=== PATIENT | male | born 1950 | race Caucasian/White ===

== ENCOUNTER 2016-12-14 10:13 | Day surgery (SDC) | payer MEDICARE, BC ==
[~2016-12-14 10:13] MED LIST: RINGERS SOLUTION,LACTATED 1,000 ML IV PRN
[2016-12-14] MEDS ORDERED: PANTOPRAZOLE SODIUM 40 MG/100 ML PIGGYBACK IV ONE (12:55)
[2016-12-14] MEDS ORDERED: PANTOPRAZOLE SODIUM 40 MG in NORMAL SALINE 100 ML IV ONE (13:00)
[2016-12-14 13:14] VITALS: BP 147/92
--- NOTE | 2016-12-14 17:24 | OR ---
Operative Report - Dictated Report Narrative: Operative Report Date of operation: 12/14/2016 Preoperative diagnosis: History of Herr's esophagus. No recent dedicated colon studies Postoperative diagnosis: Hiatal hernia with distal esophagitis. Gastritis with polyp formation (pathology and CLOtest pending) diverticulosis. 4 mm polyp at the hepatic flexure (pathology pending) Operation: EGD with biopsies. Colonoscopy with hot forceps polypectomy at the hepatic flexure Surgeon: Dr Gonzalez Anesthesia: PRAFUL HILL CRNA Indications for procedure: The patient is a 65-year-old male referred by Dr. Long. The patient has a history of Herr's esophagus with low-grade dysplasia in 2010 but no dysplasia in 2013. There is no family history of colon cancer Findings: Desaturation with sedation compatible with underlying obstructive sleep apnea Hiatal hernia with distal esophagitis and significant gastritis with polyp formation (pathology and CLOtest pending) Diverticulosis. 4 mm polyp at the hepatic flexure (pathology pending) Narrative of procedure: The patient was identified preoperatively, and prior to the administration of anesthetic a multidisciplinary timeout was observed EGD: With the patient in the recumbent position, a bite-block was placed, intravenous sedation was administered, and the patient's eyes covered with a towel. The flexible fiberoptic gastroscope was advanced into the posterior pharynx which appeared normal. The patient did evidence desaturation with sedation suggesting underlying obstructive sleep apnea. The supraglottic larynx appeared normal. The cords appeared normal, moved well, and opposed in the midline. The scope was advanced under direct vision into the proximal esophagus which appeared normal. The esophagus appeared freely distensible with normal mucosa. The esophageal mucosa appeared normal down to the gastroesophageal junction which was irregular and mildly inflamed. The GE junction appeared normally distensible. There was an axial sliding hiatal hernia. The scope was advanced into the stomach which was insufflated with air. Immediately apparent was an inflamed fundic polyp with evidence of bleeding. There was marvin gastritic erythema but no josephine ulcerations or neoplastic lesions were appreciated including a retroflexed view of the gastric fundus which clearly demonstrated the hiatal hernia. The scope was redirected toward the pylorus. The gastric polyp was biopsied. The biopsy site was seen to be hemostatic. Additional biopsies of the antrum were obtained for CLOtest and pathology. The biopsy sites were seen to be hemostatic. The pylorus appeared patent. The scope was advanced into the duodenal bulb which appeared normal. The scope was advanced further to the horizontal portion of the duodenum which appeared normal, specifically the villous architecture appeared well preserved and clear bile was present. The scope was slowly withdrawn through the duodenal bulb with confirmation that no active ulcer was present. The scope was withdrawn into the stomach, insufflated air was removed, the scope was withdrawn to just above the GE junction which was biopsied. The area appeared hemostatic. The scope was withdrawn from the patient, and this portion of the procedure terminated. COLONOSCOPY: The patient was then placed in the left lateral position, and the perineum was inspected. There was no evidence of pilonidal disease or skin breakdown. The external appearance of the anus was normal. Sphincter tone was good. The flexible fiberoptic colonoscope was inserted into the rectum which was insufflated with air. The rectal mucosa and submucosal vascular pattern appeared normal, the prep was seen to be complete. The scope was advanced through the sigmoid colon which contained several not impacted noninflamed diverticular openings. The scope was advanced up the descending colon, and around the splenic flexure where the triangular haustral architecture of the transverse colon was seen. The scope was advanced across the transverse colon to the hepatic flexure where a 4 mm polyp was encountered. The polyp was biopsied and then thoroughly destroyed with electrocautery. The site was seen to be complete and hemostatic. The scope was advanced around the hepatic flexure to the cecum, where the confluence of tenia and the ileocecal valve were identified. The mucosa at this level appeared normal. The scope was then slowly withdrawn in a circular fashion so that all aspects of colonic mucosa were inspected. The biopsy polyp was again inspected and found to be completely destroyed and hemostatic. The colon was somewhat capacious in character but normal in course. The haustral architecture appeared well preserved throughout with no evidence of external compression. The mucosa and submucosal vascular pattern appeared normal, specifically there was no gross evidence to suggest colitis or inflammatory bowel disease and no AV malformations were seen. The diverticulosis was mild in degree and confined primarily to the sigmoid colon. No additional polyps were encountered. The scope was gradually withdrawn to the level of the rectum. As much insufflated air as possible was removed. The scope was withdrawn from the patient and the procedure terminated. The patient tolerated the anesthetic and procedure well without complication and was transferred back to the ambulatory surgery area awake and in stable condition. The patient remained stable throughout a period of postoperative observation. He denied abdominal discomfort, was able to tolerate by mouth intake, and was up without assistance. I shared the operative findings with the patient his and he was given copies of the photographs which appear in the medical record. He was discharged home with instructions not to engage in hazardous activity today, but may resume normal activity tomorrow, and advance diet as tolerated. He is to continue those medications as listed in the history and physical exam. I made arrangements to contact him with the biopsy reports and will make additional recommendations for treatment and follow-up based upon those results. The findings of obstructive sleep apnea were explained to him and his , and it was strongly recommended that he seek an outpatient sleep study to further evaluate this. Reviewed and electronically signed
== END 2016-12-14 10:14 | disposition home or self-care (01) ==
LOC: AMB 10:13
PROVIDERS: ATTEND Surgery
PROC: 0DB48ZX Excision of Esophagogastric Junction, Via Natural or Artificial Opening Endoscopic, Diagnostic (ICD-10-PCS; 2016-12-14)
PROC: 0DBE8ZX Excision of Large Intestine, Via Natural or Artificial Opening Endoscopic, Diagnostic (ICD-10-PCS; principal; 2016-12-14 11:35)
PROC: 0DB68ZX Excision of Stomach, Via Natural or Artificial Opening Endoscopic, Diagnostic (ICD-10-PCS; 2016-12-14 11:35)
DX: Z12.11 Encounter for screening for malignant neoplasm of colon (principal); K63.5 Polyp of colon; K29.70 Gastritis, unspecified, without bleeding; K44.9 Diaphragmatic hernia without obstruction or gangrene; K21.0 Gastro-esophageal reflux disease with esophagitis; K57.30 Diverticulosis of large intestine without perforation or abscess without bleeding; E78.5 Hyperlipidemia, unspecified; Z87.891 Personal history of nicotine dependence; Z68.35 Body mass index [BMI] 35.0-35.9, adult